=== PATIENT | female | born 1955 | race Two or more races ===

== ENCOUNTER 2019-11-18 05:25 | Day surgery (SDC) | payer BC | END 2019-11-18 10:07 | disposition home or self-care (01) | LOC: AMB-ENDOS 05:25 → ADM 11:30 | DX: K62.89 Other specified diseases of anus and rectum (principal); K64.2 Third degree hemorrhoids ==

== ENCOUNTER 2021-01-18 06:46 | Day surgery (SDC) | payer BC | END 2021-01-18 13:15 | disposition home or self-care (01) | LOC: AMB-ENDOS 06:46 | PROVIDERS: ATTEND Colon & Rectal Surgery | DX: K62.89 Other specified diseases of anus and rectum (principal); K64.2 Third degree hemorrhoids; Z20.822 Contact with and (suspected) exposure to COVID-19 ==